=== PATIENT | female | born 1985 ===

== ENCOUNTER 2017-07-16 05:29 | Inpatient (IN) | payer BC ==
[2017-07-16] MEDS ORDERED: EPSOM SALT 454 GM TP PRN (05:48)
[2017-07-16] MEDS ORDERED: MISOPROSTOL 200 MCG TAB PR PRN (05:48)
[2017-07-16] MEDS ORDERED: OXYTOCIN/RINGERS LACTATE 1,000 ML IV PRN (05:48)
[2017-07-16] MEDS ORDERED: TERBUTALINE SULFATE 1 MG/ML VIAL IV PRN (05:48)
[2017-07-16] MEDS ORDERED: LIDOCAINE 1% 300 MG/30 ML SDV SC PRN (05:48)
[2017-07-16] MEDS ORDERED: LR 1,000 ML IV PRN (05:48)
[2017-07-16] MEDS ORDERED: OLIVE OIL 118 ML BTL MISC PRN (05:48)
[2017-07-16] MEDS ORDERED: IBUPROFEN 600 MG TAB PO PRN ×2 (05:48→06:26)
[2017-07-16] MEDS ORDERED: OLIVE OIL 118 ML BTL ONE (05:54)
[2017-07-16] MEDS ORDERED: MISOPROSTOL 200 MCG TAB ONE (05:54)
[2017-07-16] MEDS ORDERED: LIDOCAINE 1% 300 MG/30 ML SDV ONE (05:54)
[2017-07-16] MEDS ORDERED: OXYTOCIN 10 UNIT/ML VIAL ONE (05:54)
[2017-07-16] MEDS ORDERED: TERBUTALINE SULFATE 1 MG/ML VIAL ONE (05:54)
[2017-07-16] MEDS ORDERED: AMMONIA AROMATIC 1 EACH AMP IH ONE (05:54)
[2017-07-16] MEDS ORDERED: HYDROCORTISONE 0.5% CREAM TP PRN (06:26)
[2017-07-16] MEDS ORDERED: SIMETHICONE 80 MG TAB CHEW PO PRN (06:26)
[2017-07-16] MEDS ORDERED: DOCUSATE SODIUM 100 MG CAP PO PRN (06:26)
--- NOTE | 2017-07-16 06:26 | PDGENHP ---
History and Physical History and Physical: CARE: with home CNM HPI: Patient is a 31 yo with IUP@40-2 that presents to L&D in labor since 0200 with SROM @ 0330 with thick MSF. EDC: 07/14/2017 which is based on LMP which is known and consistent with Ultrasound at 20 weeks. Her is complicated by: hypothyroidism (no meds), MTHFR HISTORY: Previous OB history: x1 Past medical history: hypothyroid (no meds) Past surgical history: tonsillectomy, appendectomy Medications: PNV, methylfolate Allergies (list reaction): sulfa LABS: (all per CNM and pt report) Rh: + ABS: Neg Rubella: Immune HbsAg: NR HIV: NR VDRL: NR 1hr: not done GC: Neg Chlamydia: Neg GBS: negative PHYSICAL EXAM: Constitutional: WN, A&Ox3 HEENT: normocephalic atraumatic, supple Heart: RRR, no murmur Chest: CTA-B Abdomen: Soft, nontender, gravid Extremities: no edema, negative Vero's sign Neuro: grossly normal Psych: normal affect assessment: cat 1 FHR tracing Assessment: 1) [id number] with IUP@ 40-2 2) active labor 3) MSF 4) GBS Neg Plan: 1) Admit to L&D 2) anticipate
--- NOTE | 2017-07-16 06:32 | OBDEL ---
Info Type: Vaginal Presentation at Delivery: Vertex L&D Analgesia/Anesthesia Type: None GBS+: No Indications for Delivery: Spontaneous Labor, SROM Vaginal Delivery - Labor and Delivery Onset of Contractions Date: 07/16/17 Onset of Contractions Time: 02:00 Onset of Contractions Type: Spontaneous Rupture of Membranes Date: 07/16/17 Rupture of Membranes Time: 03:30 Rupture of Membranes Type: Spontaneous Amniotic Fluid Color: Thick Meconium Dilation Complete Date: 07/16/17 Dilation Complete Time: 05:53 Placenta Delivery Date: 07/16/17 Placenta Delivery Time: 05:58 Total Hours of Labor: 3 Vaginal Sponge Count Correct: Yes Vaginal Needle Count Correct: Yes Vaginal Sweep Performed: Yes EBL: 200 Delivery Events: Nuchal Cord Data EMMA: 07/14/17 Gestational Age: 40 week(s) and 2 day(s) [place] Delivery Date: 07/16/17 Delivery Time: 05:54 Sex of Infant: Female Score (1 Min): 8 Score (5 Min): 9 ICD10 Worksheet Patient Problems: Problems Problem Status Onset Nuchal cord, single gestation Acute Precipitous delivery Acute Thick meconium stained amniotic fluid Acute - ICD10 Problem Qualifiers (1) Precipitous delivery (2) Thick meconium stained amniotic fluid (3) Nuchal cord, single gestation
[2017-07-16 07:55] LABS: PLATELET COUNT 127 10^3/uL (150-400)
--- NOTE | 2017-07-16 10:37 | OBPP ---
Progress Note Assessment/Plan: Assessment: s/p - PP heavy bleeding uterine sweep and minimal clot obtained after many clots expelled from vagina by RN uterus responding to IV pitocin Plan: Routine care, CBC and T/S sent when IV started Pt desires d/c. If bleeding stable and uterus remaining firm, will d/c after seen by peds if baby d/c 07/16/17 10:29 Subjective/ Course: 07/16/17 10:32 LATE NOTE - SEEN APPROX 8AM Pt seen and evaluated after RN expelled many clots with total EBL now calculated around 900cc. pt was very uncomfortable with attempting uterine sweep of clots and requested Fentanyl - 50 IV given. Pt then jaida exam and small clots swept out of uterus - good tone and pitocin running well. Pt not having nausea and b/p 117/74. since then pt doing well. amb and was able to urinate fine. desires d/c when approved by peds. baby has latched well. Objective: 07/16/17 07:30 Patient ABO/Rh O POSITIVE 07/16/17 07:30 Uterine Position/Fundal Height: Umbilicus -2 Uterine Tone: Firm Physical Exam - Physical Exam Abdomen: non-tender, soft, other (FF at umb -2) Extremities: non-tender, pedal edema (minimal) Skin: normal color, warm/dry Neuro/Psych: alert, normal mood/affect
== END 2017-07-16 13:00 | disposition home or self-care (01) | DRG 775 ==
LOC: FLD 05:29
PROVIDERS: ADMIT Advanced Practice Midwife; ATTEND Advanced Practice Midwife
PROC: 10E0XZZ Delivery of Products of Conception, External Approach (ICD-10-PCS; principal; 2017-07-16)
DX: O99.284 Endocrine, nutritional and metabolic diseases complicating childbirth (principal); E03.9 Hypothyroidism, unspecified; Z37.0 Single live birth; Z3A.40 40 weeks gestation of pregnancy; O69.82X0 Labor and delivery complicated by other cord entanglement, without compression, not applicable or unspecified
CPT/HCPCS: J2590; J3105